=== PATIENT | male | born 1990 | race Caucasian/White ===

== ENCOUNTER 2018-04-03 19:11 | Emergency (ER) | payer SELFPAY ==
[~2018-04-03] VITALS: Ht 182.9 cm; Wt 65.8 kg
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
[2018-04-03 19:37] VITALS: BP 125/87
[2018-04-03 19:47] LABS: EOSINOPHILS % (AUTO) 6.3 % (0.0-3.0); HEMOGLOBIN 16.6 G/DL (14.2-18.0); LYMPHOCYTES % (AUTO) 22.4 % (20.0-45.0); MEAN CORPUSCULAR VOLUME 84 FL (80-99); NEUTROPHILS % (AUTO) 63.2 % (45.0-75.0); PLATELET COUNT 156 K/UL (150-450); RED BLOOD COUNT 5.68 M/UL (4.70-6.10); WHITE BLOOD COUNT 11.1 K/UL (4.8-10.8)
[2018-04-03 19:50] LABS: ANION GAP 14 mmol/L (5-15); BLOOD UREA NITROGEN 8 mg/dL (7-18); CALCIUM 9.4 MG/DL (8.5-10.1); CARBON DIOXIDE 24 MMOL/L (21-32); CHLORIDE 102 MMOL/L (98-107); CREATININE 1.3 MG/DL (0.55-1.30); POTASSIUM 4.1 MMOL/L (3.5-5.1); SODIUM 140 MMOL/L (136-145)
[2018-04-03] MEDS ORDERED: BUPRENORPHINE HC8 MG SL ×2 (19:54→21:32)
[2018-04-03] MEDS ORDERED: CATAPRES0.2 MG ORAL (19:54)
[2018-04-03] MEDS ORDERED: GABAPENTIN600 MG ORAL (19:54)
[2018-04-03] MEDS ORDERED: TRILEPTAL600 MG PO ×2 (19:54→21:32)
[2018-04-03 21:55] VITALS: BP 122/80
[2018-04-03 21:56] VITALS: BP 122/80
== END 2018-04-03 22:30 | disposition home or self-care (01) ==
LOC: EDBD 19:11 → EMR 22:25
DX: G40.909 Epilepsy, unspecified, not intractable, without status epilepticus (principal)
CPT/HCPCS: 36415; 80048; 80307; 85025; 96360; 99284; G0480; 80329